=== PATIENT | female | born 1955 | race Caucasian/White ===

== ENCOUNTER 2024-02-08 07:16 | Day surgery (SDC) | payer OTHER ==
[~2024-02-08] VITALS: Ht 144.8 cm; Wt 61.2 kg
[2024-02-08] MEDS ORDERED: MEPERIDINE 100 MG INJ. 100 MG/ML VIAL ONE (07:46)
[2024-02-08] MEDS ORDERED: MIDAZOLAM HCL 5 MG/5 ML VIAL ONE ×2 (07:46→09:19)
[2024-02-08] MEDS ORDERED: SIMETHICONE 40 MG/0.6 ML ML ONE (07:51)
[2024-02-08 09:15] VITALS: O2SAT 97
[2024-02-08 11:59] VITALS: BP_SYST 116; PULSE 58; RESP 16; TEMP 97.4
== END 2024-02-08 10:52 | disposition home or self-care (01) ==
LOC: SDS 07:16 → SMU 07:20 → SDS 10:52
PROVIDERS: ATTEND Internal Medicine Gastroenterology
DX: K59.00 Constipation, unspecified (principal); K21.9 Gastro-esophageal reflux disease without esophagitis; K29.50 Unspecified chronic gastritis without bleeding; K44.9 Diaphragmatic hernia without obstruction or gangrene; K64.8 Other hemorrhoids; E78.5 Hyperlipidemia, unspecified; E03.9 Hypothyroidism, unspecified; Z79.890 Hormone replacement therapy; Z79.899 Other long term (current) drug therapy; Z98.890 Other specified postprocedural states; Z80.0 Family history of malignant neoplasm of digestive organs
CPT/HCPCS: 43251; 43239; 99152; 87081; 36415; 45378; 88305; 88312; 88313; 99153; G0378; J2250; J2175